=== PATIENT | female | born 1995 | race Caucasian/White ===

== ENCOUNTER 2016-03-20 09:23 | Emergency (ER) | payer OTHER, MEDICAID ==
[2016-03-20 11:04] LABS: Urine Bacteria Absent (Absent); Urine Bilirubin Negative (Negative); Urine Glucose Negative (Negative); Urine Nitrite Negative (Negative)
--- NOTE | 2016-03-20 11:15 | ED ---
GI/ HPI - HPI Summary HPI Summary: 20yo female presents with dysuria, frequency and urgency for the last 3 days. She presents today with concerns over RLQ pain that radiates into her right flank that woke her from sleep at 0100 today. She denies fever. She does have chills. + vomiting but no nausea. She believes that the emesis was secondary to pain. Pain is described as a labor pain, cramping pain 7/10 constant pain. + lactating, 2 month post . Denies h/o kidney stones. Patient states that pain is constant and nothing makes it better or worse. Patient would like pain medication that is not contraindicated with . She denies any anorexia. Denies any vaginal symptoms of discharge or bleeding. - History of Current Complaint Chief Complaint: EDAbdPain Time Seen by Provider: 03/20/16 11:00 Stated Complaint: RT SIDE FLANK PAIN Pain Intensity: 7 - Allergy/Home Medications Allergies/Adverse Reactions: Allergies Allergy/AdvReac Type Severity Reaction Status Date / Time Iodine Allergy Rash Verified 03/20/16 09:29 PMH/Surg Hx/FS Hx/Imm Hx Previously Healthy: Yes - Immunization History Date of Tetanus Vaccine: 2011 Date of Influenza Vaccine: Fall 2014 Infectious Disease History: No Infectious Disease History: Denies: Traveled Outside the [place] in Last 30 Days - Family History Known Family History: Positive: Other - Mother CVA 48yo - Social History Alcohol Use: None Substance Use Type: Reports: None Smoking Status (MU): Never Smoked Tobacco Review of Systems Positive: Chills Positive: Vomiting Positive: burning, dysuria, frequency, flank pain, urgency All Other Systems Reviewed And Are Negative: Yes Physical Exam - Summary Physical Exam Summary: GENERAL: Well appearing, No acute distress, well nourished. Non toxic. HEENT: Head atraumatic/normocephalic, EOMI/LACEY, conjunctiva clear, TMs appear without erythema/bulging, Nose appears without congestion or drainage, Throat uvula midline without exudates, erythema, or tonsillar edema. NECK: Supple with normal range of motion during conversation. CARDIAC: RRR without murmur, rub or gallop LUNGS: Clear to auscultation without wheezing, rales or rhonchi. Normal respiratory effort. Breath sounds are symmetrical and equal. ABDOMEN: Abdomen is soft with some RLQ tenderness which is not over McBurney' s point. No rebound or guarding. Neg Heel jar. + right CVA tenderness. MUSCULOSKELETAL: Moves all extremities well. There is no peripheral edema. SKIN: Warm and dry, skin color reflects adequate perfusion. NEUROLOGICAL: Patient is alert and appropriate. Cranial nerves are grossly intact. PSYCHIATRIC: Appropriate affect. Vital Signs On Initial Exam: Initial Vitals Temp Pulse Resp BP Pulse Ox 97.0 F 98 16 105/65 99 03/20/16 09:26 03/20/16 09:26 03/20/16 09:26 03/20/16 09:26 03/20/16 09:26 - Peck Coma Scale Coma Scale Total: 15 Diagnostics - Vital Signs Vital Signs Temp Pulse Resp BP Pulse Ox 03/20/16 09:26 97.0 F 98 16 105/65 99 - Laboratory Lab Results: Lab Results 03/20/16 Range/Units 10:40 Urine Color Yellow Urine Appearance Cloudy Urine pH 5.0 (5-9) Ur Specific [place] 1.013 (1.010-1.030) Urine Protein 2+(100 mg/dl) H (Negative) Urine Ketones Negative (Negative) Urine Blood 1+ H (Negative) Urine Nitrate Negative (Negative) Urine Bilirubin Negative (Negative) Urine Urobilinogen Negative (Negative) Ur Leukocyte Esterase 3+ H (Negative) Urine WBC (Auto) 3+(>20/hpf) H (Absent) Urine RBC (Auto) 3+(>10/hpf) H (Absent) Ur Squamous Epith Cells Present H (Absent) Ur Transition Epith Cell Present H (Absent) Urine Bacteria Absent (Absent) Urine Glucose Negative (Negative) Urine Ascorbic Acid * H (Negative) Result Diagrams: 03/20/16 11:52 03/20/16 11:52 Lab Statement: Any lab studies that have been ordered have been reviewed, and results considered in the medical decision making process. - Ultrasound No standard instances Ultrasound Interpretation: No Acute Changes - No hydronephrosis of either kidney is noted. Bilateral ureteral jets to BE patent. Ultrasound Interpretation Completed By: Radiologist Re-Evaluation - Re-Evaluation First Eval Change: Unchanged - Patient would like medication for pain that is safe in . Discussed limitations of u/s vs ct for evaluation for kidney stone, however the benefit of limiting radiation to reproductive organs with u/s. Patient voiced understanding and consents to u/s exam. Second Eval Change: Improved - Patient states that the pain has improved to a 3/4 from a 7/ 8. She has been able to take and retain. She would like to be discharged. GIGU Course/Dx - Course Assessment/Plan: 20yo female presents with urinary symptoms for 3 days then started with RLQ and right flank pain that started last night. She had one emesis this am. + chills without fever. Denies vaginal symptoms. She is nursing. Exam is significant for CVA tenderness. No McBurney's point tenderness. She improved with fluids, toradol and abx. She is able to take and retain. U/s did not show signs of obstruction. Discussed that the u/s can be limited in respect to a non obstructing stone, but does not have the radiation exposure. Discussed with Dr. Gaspar. Medication was checked and was generally considered safe in . Patient is reliable and understands that she must return with any new or worsening symptoms. Patient voiced understanding and is comfortable with the plan of care. - Diagnoses Provider Diagnoses: Acute pyelonephritis - Physician Notifications Discussed Care Of Patient With: Dr. Gaspar Discharge - Discharge Plan Condition: Good Disposition: HOME Prescriptions: Sulfamethox/Trimethoprim DS* [Bactrim DS 800/160 TAB*] 1 tab PO BID #20 tab Patient Education Materials: Sulfamethoxazole/Trimethoprim (By mouth), Ibuprofen (By mouth), Acute Pyelonephritis (ED) Referrals: [facility] [Outside] - 2 Days Additional Instructions: Please follow up with your PCP tomorrow for a recheck. As discussed, it is important that you follow up here with any worsening pain, vomiting, unable to urinate, fever or chills. Please return with any problems, concerns or worsening symptoms. Often this will improve with antibiotics, sometimes the symptoms worsen and you need to be admitted for infection. Please have a low threshold to return with any problems/concerns. Addendum entered and electronically signed by Yudith Wright PA 03/22/16 07: 20: ED Addendum Addendum: Patient urine culture grew e coli 75-100,000. pt placed on bactrim at d/c will wait for final culture to see sensitivity.
[2016-03-20] MEDS ORDERED: cefTRIAXone(*) 1 GM in NS 0.9% 50 ML* 50 ML IVPB ONE (11:28)
[2016-03-20] MEDS ORDERED: Ketorolac INJ* 30 MG/ML 1 ML VIAL IV ONE (11:28)
[2016-03-20] MEDS: NS 0.9% 1000 ML* 2,000 ML IV ONE ×2 (11:54→12:39)
[2016-03-20 12:23] LABS: Hematocrit 38 % (35-47); Hemoglobin 12.7 g/dl (12.0-16.0); Mean Corpuscular HGB Conc 34 g/dl (31-36); Mean Corpuscular Hemoglobin 31 pg (27-31); Mean Corpuscular Volume 92 fL (80-97); Mean Platelet Volume 9 um3 (7.4-10.4); Red Blood Count 4.08 10^6/ul (4.0-5.4); Red Cell Distribution Width 13 % (10.5-15); White Blood Count 8.5 10^3/ul (3.5-10.8)
[2016-03-20 12:37] LABS: BUN/Creatinine Ratio 13.3 (8-20); Calcium 8.9 mg/dL (8.6-10.3); EGFR African American 124.3 (>60); EGFR Non-African American 96.6 (>60); Globulin 2.8 g/dL (2-4); Potassium 3.4 mmol/L (3.5-5.0); Total Bilirubin 0.4 mg/dL (0.2-1.0); Total Protein 6.8 g/dL (6.4-8.9)
--- NOTE | 2016-03-20 12:43 | RAD ---
Indication: Right costovertebral angle tenderness. Real-time sonography of the kidneys was performed. Right kidney measures 11.4 x 5.0 x 4.0 cm. No hydronephrosis is noted. Left kidney measures 11.6 x 4.7 x 4.8 cm. No hydronephrosis is noted. Evaluation of the ureteral jets in the urinary bladder demonstrates bilateral ureteral jets to BE patent. IMPRESSION: No hydronephrosis of either kidney is noted.
[2016-03-20 14:34] VITALS: BP 128/76
--- NOTE | 2016-03-23 09:05 | PN ---
Progress Note - Progress Note Note: Patient discharged on Bactrim, which is sensitive to cultures. No further action required.
== END 2016-03-20 14:31 | disposition home or self-care (01) ==
LOC: ED 09:23
DX: N10 Acute pyelonephritis (principal); R10.31 Right lower quadrant pain; R11.10 Vomiting, unspecified; R30.0 Dysuria
CPT/HCPCS: 36415; 76775; 80053; 81003; 81015; 83605; 84702; 85025; 87077; 87086; 87186; 96361; 96374; 99282; J0696; J1885

== ENCOUNTER 2016-10-01 20:05 | Emergency (ER) | payer OTHER, MEDICAID ==
[2016-10-01] MEDS ORDERED: Ondansetron INJ* 2 MG/ML VIAL IV ONE (22:53)
[2016-10-01] MEDS ORDERED: NS 0.9% 1000 ML* 1,000 ML IV ONE (22:53)
[2016-10-01 23:20] LABS: Hematocrit 41 % (35-47); Hemoglobin 13.7 g/dl (12.0-16.0); Mean Corpuscular HGB Conc 34 g/dl (31-36); Mean Corpuscular Hemoglobin 31 pg (27-31); Mean Corpuscular Volume 93 fL (80-97); Mean Platelet Volume 9 um3 (7.4-10.4); Red Blood Count 4.39 10^6/ul (4.0-5.4); Red Cell Distribution Width 13 % (10.5-15); White Blood Count 8.9 10^3/ul (3.5-10.8)
[2016-10-01 23:35] LABS: Anion Gap 11 mmol/L (2-11); Blood Urea Nitrogen 8 mg/dL (6-24); CO2 Carbon Dioxide 24 mmol/L (22-32); Calcium 9.1 mg/dL (8.6-10.3); Chloride 100 mmol/L (101-111); EGFR African American 127.1 (>60); EGFR Non-African American 98.8 (>60); Glucose 81 mg/dL (70-100); Potassium 3.4 mmol/L (3.5-5.0); Sodium 135 mmol/L (133-145)
--- NOTE | 2016-10-02 00:10 | ED ---
Ana Rosa Alexander Alfonso, scribed for Shawn Foster MD on 10/01/16 at 2256 . Complex/Multi-Sys Presentation - HPI Summary HPI Summary: This patient is a 21 year old F presenting to [facility] accompanied by male with a chief complaint of bilateral breast swelling since yesterday. Pt rates the pain 7/10 in severity. Symptoms aggravated and alleviated by nothing. Pt reports fever, nausea, vomiting, and bilateral breast pain. Pt was prescribed Bactrim after a PCP diagnosis of mastitis earlier today. Pt reports having taken the first dose. - History Of Current Complaint Chief Complaint: EDGeneral Time Seen by Provider: 10/01/16 22:50 Hx Obtained From: Patient Onset/Duration: Sudden Onset, Lasting Days - Yesterday, Still Present Timing: Constant Severity Currently: Moderate Severity Initially: Moderate Aggravating Factor(s): Nothing Alleviating Factor(s): Nothing Associated Signs And Symptoms: Positive: Other - Pt reports fever, nausea, vomiting, and bilateral breast pain. - Allergies/Home Medications Allergies/Adverse Reactions: Allergies Allergy/AdvReac Type Severity Reaction Status Date / Time Iodine Allergy Rash Verified 10/01/16 20:18 PMH/Surg Hx/FS Hx/Imm Hx Sensory History: Denies: Hx Deafness Opthamlomology History: Denies: Hx Legally Blind - Immunization History Date of Tetanus Vaccine: 2011 Date of Influenza Vaccine: Fall 2014 Infectious Disease History: Denies: Traveled Outside the [place] in Last 30 Days - Family History Known Family History: Positive: Other - Mother CVA 48yo - Social History Alcohol Use: None Substance Use Type: Reports: None Smoking Status (MU): Never Smoked Tobacco Review of Systems Positive: Fever Positive: Vomiting, Nausea Positive: Edema - bilateral breast swelling , Other - Positive bilateral breast pain All Other Systems Reviewed And Are Negative: Yes Physical Exam Triage Information Reviewed: Yes Vital Signs On Initial Exam: Initial Vitals Temp Pulse Resp BP Pulse Ox 99.9 F 106 16 111/62 98 10/01/16 20:10 10/01/16 20:10 10/01/16 20:10 10/01/16 20:10 10/01/16 20:10 Vital Signs Reviewed: Yes Appearance: Positive: Well-Appearing, No Pain Distress Skin: Positive: Warm Head/Face: Positive: Normal Head/Face Inspection Eyes: Positive: RUSSELL ENT: Positive: Hearing grossly normal Neck: Positive: Supple Respiratory/Lung Sounds: Positive: Clear to Auscultation, Breath Sounds Present , Other - lt breast mildly warm indurated, no fluctunce, no d/c Cardiovascular: Positive: RRR Abdomen Description: Positive: Nontender, Soft Musculoskeletal: Positive: Strength/ROM Intact Neurological: Positive: Alert, Oriented to Person Place, Time Psychiatric: Positive: Affect/Mood Appropriate Diagnostics - Vital Signs Vital Signs Temp Pulse Resp BP Pulse Ox 10/01/16 21:45 98.3 F 103 120/63 100 10/01/16 20:10 99.9 F 106 16 111/62 98 - Laboratory Lab Results: Lab Results 10/01/16 10/01/16 Range/Units 23:11 23:11 WBC 8.9 (3.5-10.8) 10^3/ul RBC 4.39 (4.0-5.4) 10^6/ul Hgb 13.7 (12.0-16.0) g/dl Hct 41 (35-47) % MCV 93 (80-97) fL MCH 31 (27-31) pg MCHC 34 (31-36) g/dl RDW 13 (10.5-15) % Plt Count 181 (150-450) 10^3/ul MPV 9 (7.4-10.4) um3 Neut % (Auto) 79.9 (38-83) % Lymph % (Auto) 10.2 L (25-47) % [place] % (Auto) 5.1 (1-9) % Eos % (Auto) 4.4 (0-6) % Baso % (Auto) 0.4 (0-2) % Absolute Neuts (auto) 7.1 (1.5-7.7) 10^3/ul Absolute Lymphs (auto) 0.9 L (1.0-4.8) 10^3/ul Absolute Monos (auto) 0.5 (0-0.8) 10^3/ul Absolute Eos (auto) 0.4 (0-0.6) 10^3/ul Absolute Basos (auto) 0 (0-0.2) 10^3/ul Absolute Nucleated RBC 0 10^3/ul Nucleated RBC % 0 Sodium 135 (133-145) mmol/L Potassium 3.4 L (3.5-5.0) mmol/L Chloride 100 L (101-111) mmol/L Carbon Dioxide 24 (22-32) mmol/L Anion Gap 11 (2-11) mmol/L BUN 8 (6-24) mg/dL Creatinine 0.73 (0.51-0.95) mg/dL Est GFR ( Amer) 127.1 (>60) Est GFR (Non-Af Amer) 98.8 (>60) BUN/Creatinine Ratio 11.0 (8-20) Glucose 81 (70-100) mg/dL Calcium 9.1 (8.6-10.3) mg/dL Result Diagrams: 10/01/16 23:11 10/01/16 23:11 Lab Statement: Any lab studies that have been ordered have been reviewed, and results considered in the medical decision making process. Complex Multi-Symp Course/Dx Assessment/Plan: 21 year old F presenting to [facility] accompanied by male with a chief complaint of bilateral breast swelling since yesterday. Pt reports fever, nausea, vomiting, and bilateral breast pain. Pt was prescribed Bactrim after a PCP diagnosis of mastitis earlier today. Pt reports having taken the first dose. Patient will be discharged with instructions to continue taking PCP prescription and follow up from PCP. Pt is agreeable with this plan. - Diagnoses Provider Diagnoses: Mastitis Discharge - Discharge Plan Condition: Stable Disposition: HOME Patient Education Materials: Mastitis (ED) Referrals: Radha Barkley MD [Primary Care Provider] - 2 Days Additional Instructions: CONTINUE PREVIOUSLY PRESCRIBED TREATMENT. RETURN TO ED IMMEDIATELY FOR ANY WORSENING SYMPTOMS. The documentation as recorded by the Ana Rosa alford Alfonso accurately reflects the service I personally performed and the decisions made by , Shawn Foster MD.
[2016-10-02 00:35] VITALS: BP 103/53
== END 2016-10-02 00:37 | disposition home or self-care (01) ==
LOC: ED 20:05
DX: N61.0 Mastitis without abscess (principal); R50.9 Fever, unspecified; R11.2 Nausea with vomiting, unspecified; R60.9 Edema, unspecified
CPT/HCPCS: 36415; 80048; 84702; 85025; 96374; 99282; J2405

== ENCOUNTER 2018-04-07 15:29 | Emergency (ER) | payer OTHER, MEDICAID ==
[2018-04-07 15:54] VITALS: BP 111/68
--- NOTE | 2018-04-07 16:20 | UC ---
Throat Pain/Nasal Dallin HPI - HPI Summary HPI Summary: 22-year-old woman 22-year-old woman comes in with a chief complaint of upper respiratory tract infection symptoms and left ear pain. Patient's been having upper respiratory tract infection symptoms on and off for several months. Over time she's been developing off colored rhinorrhea. She's also developed recently left ear pain and also a swollen lymph node in the left upper lateral neck. Patient's had a history of a swollen lymph node in that area of her neck and she had it biopsied when she was 15 years old and patient reports everything was normal at that time. That lymph node has always swollen the last week or so it's more swollen than usual and it's tender to palpation. No fevers no chest congestion. - History of Current Complaint Chief Complaint: UCRespiratory Stated Complaint: SORE THROAT Time Seen by Provider: 04/07/18 15:52 Hx Last Menstrual Period: 01/30/18 Pain Intensity: 6 - Allergies/Home Medications Allergies/Adverse Reactions: Allergies Allergy/AdvReac Type Severity Reaction Status Date / Time iodine Allergy Rash Verified 04/07/18 15:55 PMH/Surg Hx/FS Hx/Imm Hx Previously Healthy: Yes - ANTERIOR LYMPHADENOPATHY - Surgical History Surgical History: None - Family History Known Family History: Positive: Other - Mother CVA 48yo - Social History Alcohol Use: None Substance Use Type: None Smoking Status (MU): Never Smoked Tobacco - Immunization History Most Recent Influenza Vaccination: 12/02/15 Most Recent Tetanus Shot: 10/30/18 Most Recent Pneumonia Vaccination: not indicated Review of Systems All Other Systems Reviewed And Are Negative: Yes Constitutional: Positive: Negative Skin: Positive: Negative Eyes: Positive: Negative ENT: Positive: Sore Throat, Ear Ache, Nasal Discharge, Sinus Congestion, Sinus Pain/Tenderness Respiratory: Positive: Negative Cardiovascular: Positive: Negative Gastrointestinal: Positive: Negative Motor: Positive: Negative Neurovascular: Positive: Negative Musculoskeletal: Positive: Negative Neurological: Positive: Negative Psychological: Positive: Negative Is Patient Immunocompromised?: No Physical Exam Triage Information Reviewed: Yes Appearance: Well-Appearing, No Pain Distress, Well-Nourished Vital Signs: Initial Vital Signs Temp 99 F 04/07/18 15:49 Pulse 90 04/07/18 15:49 Resp 16 04/07/18 15:49 BP 111/68 04/07/18 15:49 Pulse Ox 99 04/07/18 15:49 Vital Signs Reviewed: Yes Eye Exam: Normal Eyes: Positive: Conjunctiva Clear ENT: Positive: Pharyngeal erythema, Nasal congestion, Nasal drainage, TM bulging - LEFT, TM dull - LEFT Neck: Positive: Supple, Enlarged Nodes @ - LEFT UPPER ANTERIOR, Other: Respiratory: Positive: Lungs clear, Normal breath sounds, No respiratory distress Cardiovascular: Positive: RRR Musculoskeletal Exam: Normal Musculoskeletal: Positive: Strength Intact, ROM Intact Neurological Exam: Normal Neurological: Positive: Alert, Muscle Tone Normal Psychological Exam: Normal Psychological: Positive: Age Appropriate Behavior Skin Exam: Normal Throat Pain/Nasal Course/Dx - Course Course Of Treatment: Patient's had upper respiratory tract infection symptoms on -and-off for several months and now has off colored rhinorrhea left serous otitis media and a swollen lymph node in the left anterior neck. We'll treat with Augmentin and symptomatic treatment. Because of the swollen lymph node today we will check CBC and CMP. Patient has a follow-up with her primary care doctor next week for reevaluation of the lymph node. We discussed if lymph node does not returned normal after she feels better she needs further evaluation of the lymph node. - Differential Dx/Diagnosis Provider Diagnosis: Lymphadenopathy, cervical, Sinusitis, Acute serous otitis media of left ear Discharge - Sign-Out/Discharge Documenting (check all that apply): Patient Departure All imaging exams completed and their final reports reviewed: No Studies - Discharge Plan Condition: Stable Disposition: HOME Prescriptions: Amoxicillin/Clavulanate TAB* [Augmentin TAB 875*] 875 mg PO BID #20 tab Patient Education Materials: Sinusitis (ED), Lymphadenopathy (ED), Serous Otitis Media (ED) Referrals: Ruth Nichole DO [Primary Care Provider] - Additional Instructions: FOLLOW UP WITH YOUR DOCTOR NEXT WEEK SCHEDULED. GET RECHECKED FOR ANY WORSENING OF YOUR CONDITION OR QUESTIONS OR CONCERNS. - Billing Disposition and Condition Condition: STABLE Disposition: Home
[2018-04-07 19:10] LABS: ABS Basophils 0 10^3/ul (0-0.2); ABS Eosinophils 0.3 10^3/ul (0-0.6); ABS Lymphocytes 2.1 10^3/ul (1.0-4.8); ABS Monocytes 0.4 10^3/ul (0-0.8); ABS Neutrophils 2.5 10^3/ul (1.5-7.7); ABS Nucleated RBC 0 10^3/ul; Eosinophil % 5.9 %; Hematocrit 38 % (35-47); Lymphocyte % 39.3 %; Mean Corpuscular HGB Conc 34 g/dl (31-36); Mean Corpuscular Hemoglobin 32 pg (27-31); Mean Corpuscular Volume 92 fL (80-97); Mean Platelet Volume 9.6 fL (7.4-10.4); Nucleated Red Blood Cells % 0; Platelet Count 225 10^3/ul (150-450); Red Blood Count 4.13 10^6/ul (4.00-5.40); Red Cell Distribution Width 13 % (10.5-15); White Blood Count 5.3 10^3/ul (3.5-10.8)
[2018-04-07 19:18] LABS: Albumin 4.5 g/dL (3.2-5.2); Calcium 9.3 mg/dL (8.6-10.3); Total Bilirubin 0.2 mg/dL (0.2-1.0)
[2018-04-07 19:24] LABS: Albumin/Globulin Ratio 1.9 (1-3); BUN/Creatinine Ratio 14.3 (8-20); EGFR African American 124.4 (>60); EGFR Non-African American 102.8 (>60); Globulin 2.4 g/dL (2-4); Total Protein 6.9 g/dL (6.4-8.9)
== END 2018-04-07 16:50 | disposition home or self-care (01) ==
LOC: UCEAST 15:29
DX: R59.0 Localized enlarged lymph nodes (principal); J32.9 Chronic sinusitis, unspecified; H65.02 Acute serous otitis media, left ear; J02.9 Acute pharyngitis, unspecified; Z91.09 Other allergy status, other than to drugs and biological substances
CPT/HCPCS: 36415; 80053; 85025; 99212; G0463

== ENCOUNTER 2018-06-28 20:00 | Emergency (ER) | payer MEDICAID, OTHER ==
[2018-06-28 20:07] VITALS: BP 126/76
[2018-06-28] MEDS ORDERED: Cephalexin CAP* 500 MG PO ONE ×2 (21:11)
--- NOTE | 2018-06-28 21:20 | UC ---
- HPI Summary HPI Summary: LEFT BREAST REDNESS, FIRMNESS AND PAIN STARTED ABOUT 2 DAYS AGO. PATIENT IS BREAST-FEEDING HER 2-1/2-YEAR-OLD AND HAS BEEN TRYING TO WEAN HER. HAS HAD MASTITIS IN THE PAST ABOUT 6 MONTHS AGO. HAS CHILLS BUT NO DOCUMENTED FEVER. HAS OVERALL MALAISE. - History of Current Complaint Hx Obtained From: Patient Breast Chief Complaint: Pain, Breast, Left Onset/Duration: Started Days Ago - 2 DAYS, Still Present Timing: Constant Breast Pain Radiates To: Left Breast Pain Aggravating Factors: Palpation Breast Pain Alleviating Factors: Nothing Breast Associated Signs/Symptoms: Nodule/Mass, Redness, Warmth - Allergy/Home Medications Allergies/Adverse Reactions: Allergies Allergy/AdvReac Type Severity Reaction Status Date / Time iodine Allergy Rash Verified 06/28/18 20:07 Home Medications: Home Medications Escitalopram * [Lexapro 5 mg (NF)] 5 mg PO DAILY 06/28/18 [History Confirmed ] PMH/Surg Hx/FS Hx/Imm Hx Previously Healthy: Yes - Surgical History Surgical History: None - Family History Known Family History: Positive: Other - Mother CVA 48yo - Social History Alcohol Use: None Substance Use Type: None Smoking Status (MU): Never Smoked Tobacco - Immunization History Most Recent Influenza Vaccination: 12/02/15 Most Recent Tetanus Shot: 10/30/18 Most Recent Pneumonia Vaccination: not indicated Review of Systems All Other Systems Reviewed And Are Negative: Yes Constitutional: Positive: Chills Skin: Positive: Other - REDNESS LEFT BREAST Respiratory: Positive: Negative Cardiovascular: Positive: Negative Gastrointestinal: Positive: Negative Physical Exam Triage Information Reviewed: Yes Appearance: Well-Appearing, No Pain Distress, Well-Nourished Vital Signs: Initial Vital Signs Temp 97.2 F 06/28/18 20:04 Pulse 89 06/28/18 20:04 Resp 18 06/28/18 20:04 BP 126/76 06/28/18 20:04 Pulse Ox 100 06/28/18 20:04 Vital Signs Reviewed: Yes Eyes: Positive: Conjunctiva Clear ENT: Positive: Hearing grossly normal Neck: Positive: Supple Respiratory: Positive: No respiratory distress, No accessory muscle use Cardiovascular: Positive: Pulses Normal Abdomen Description: Positive: Soft Musculoskeletal: Positive: No Edema Neurological: Positive: Alert Psychological: Positive: Age Appropriate Behavior Skin: Negative: Breakdown UC Physical Exam Vital Signs On Initial Exam: Initial Vitals Temp Pulse Resp BP Pulse Ox 97.2 F 89 18 126/76 100 06/28/18 20:04 06/28/18 20:04 06/28/18 20:04 06/28/18 20:04 06/28/18 20:04 - Breast Exam Breast Condition: Soft, Areas of Hardness - TENDER LEFT LOWER, OUTER QUADRANT FIRMNESS WITH OVERLYING ERYTHEMA Breast Pain Course/Dx - Diagnoses Provider Diagnoses: Acute mastitis of left breast Discharge - Sign-Out/Discharge Documenting (check all that apply): Patient Departure All imaging exams completed and their final reports reviewed: No Studies - Discharge Plan Condition: Stable Disposition: HOME Prescriptions: Cephalexin CAP* [Keflex 500 CAP*] 1,000 mg PO BID #36 cap Patient Education Materials: Mastitis (ED) Referrals: Ruth Nichole DO [Primary Care Provider] - If Needed Additional Instructions: TAKE THE ANTIBIOTIC PRESCRIBED. HEAT AND MASSAGE MAY HELP. USE IBUPROFEN FOR DISCOMFORT. THIS IS SAFE DURING . STICK TO A WEANING SCHEDULE SO YOUR MILK SUPPLY GRADUALLY DECREASES TO HELP PREVENT RECURRENT MASTITIS. - Billing Disposition and Condition Condition: STABLE Disposition: Home
== END 2018-06-28 21:35 | disposition home or self-care (01) ==
LOC: UCEAST 20:00
DX: N61.0 Mastitis without abscess (principal); Z91.041 Radiographic dye allergy status
CPT/HCPCS: 99212; A9270-GY; G0463

== ENCOUNTER 2019-03-04 07:09 | Emergency (ER) | payer OTHER, MEDICAID ==
--- NOTE | 2019-03-04 07:16 | UC ---
Throat Pain/Nasal Dallin HPI - HPI Summary HPI Summary: Patient's a 23-year-old female presents to urgent care with a sore for throat progressive the last 2-3 days. Patient states she has some painful swallowing. No drooling. Patient states last night she felt warm took some ibuprofen. Patient states she chronically has left ear pain and this has not changed. No sinus congestion. No rash. No chest pain, shortness of breath, cough, nausea, vomiting, or diarrhea. Patient works at [employer] but does not know of any positive strep exposures. Patient's daughter was recently diagnosed with influenza. Patient states she is not . Patient's medications as ordered in the EMR by triage is reviewed. - History of Current Complaint Stated Complaint: SORE THROAT Hx Obtained From: Patient Hx Last Menstrual Period: 01/30/18 - Allergies/Home Medications Allergies/Adverse Reactions: Allergies Allergy/AdvReac Type Severity Reaction Status Date / Time iodine Allergy Severe Rash Verified 03/04/19 07:21 sulfamethoxazole Allergy Mild Rash Verified 03/04/19 07:21 [From Bactrim] trimethoprim [From Bactrim] Allergy Mild Rash Verified 03/04/19 07:21 Home Medications: Home Medications Ibuprofen [Motrin Ib] 600 mg PO ONCE PRN 03/04/19 [History Confirmed 03/04/19] Levonorgestrel (Iud) [Mirena IUD] 1 unit INTRAUTERI ONCE 03/04/19 [History Confirmed 03/04/19] PMH/Surg Hx/FS Hx/Imm Hx Previously Healthy: Yes - Surgical History Surgical History: None - Family History Known Family History: Positive: Other - Mother CVA 48yo, Non-Contributory - Social History Occupation: Employed Full-time - [employer] as an aide Lives: With Family Alcohol Use: None Substance Use Type: None Smoking Status (MU): Never Smoked Tobacco - Immunization History Most Recent Influenza Vaccination: 12/02/15 Most Recent Tetanus Shot: 10/30/18 Most Recent Pneumonia Vaccination: not indicated Review of Systems All Other Systems Reviewed And Are Negative: Yes Constitutional: Positive: Fever - Tactile Skin: Positive: Negative Eyes: Positive: Negative ENT: Positive: Sore Throat, Ear Ache Respiratory: Positive: Negative Cardiovascular: Positive: Negative Physical Exam - Summary Physical Exam Summary: Vital Signs Reviewed: Yes A+Ox3, no distress Eyes: Conjunctiva Clear, RUSSELL. EOM intact and full ENT: Hearing grossly normal TM x 2 clear, no mastoid pain, turbinates mild inflammed, mmoist, uvula midline, + mild exudate L>R, + erythema Neck: Positive: Supple, + submandibular LA Respiratory: Positive: No respiratory distress, No accessory muscle use + CTA throughout no w/r Cardiovascular: RRR nl s1, s2 no m/r CBT <2 sec abd soft + BS nt/nd no guarding, no distension Musculoskeletal Exam: IBARRA x 4 without difficulty Strength Intact, ROM Intact Neurological: Positive: Alert, + sensation throughout Psychological: Positive: Normal Response To examiner Skin: Positive: no rash, no ecchymosis Triage Information Reviewed: Yes Throat Pain/Nasal Course/Dx - Course Course Of Treatment: Patient presents to urgent care for evaluation of sore throat progressive for 2- 3 days. Patient is painful swallowing and tactile fever last night. On exam vital signs are stable. Patient does have mild sinus congestion. Patient does have erythema with exudate or tonsil rate were somewhat. Patient also was submandibular lymphadenopathy. Patient speaking easy. Mrs. with no drooling. Patient strep throat was positive. Discussed with patient at length with her amoxicillin. Secretion precaution. Motrin/Tylenol. Gargle warm salt water. Patient was given a prescription for Diflucan as needed for vaginal yeast infection was identified. Return precautions discussed. Patient comfortable and in agreement with plan. - Differential Dx/Diagnosis Provider Diagnosis: Strep throat Discharge ED - Sign-Out/Discharge Documenting (check all that apply): Patient Departure All imaging exams completed and their final reports reviewed: No Studies - Discharge Plan Condition: Stable Disposition: HOME Prescriptions: Amoxicillin PO (*) [Amoxicillin 500 MG CAP*] 500 mg PO Q12H #20 cap Fluconazole [Diflucan 150 MG (NF)] 150 mg PO ONCE PRN #1 tab PRN Reason: vaginal yeast infection Patient Education Materials: Strep Throat (ED) Referrals: Ruth Nichole DO [Primary Care Provider] - Additional Instructions: - Okay to alternate ibuprofen (Advil, Motrin) and Tylenol every 3 hours for pain. Take with food. Do NOT take for more than 4-5 days - Okay to gargle and spit warm salt water every 4 hours as needed for pain - Stay well hydrated - frequent sips of cold fluids will be soothing to your throat (popsicles, jello, ice cream, ice water). Avoid excess caffeine until your symptoms have resolved. -Throat infections are spread by oral secretions - do not share eating or drinking utensils until you symptoms are resolved. Clean items that may get your secretions such as cell phones, ipads, computer mouse, television remotes. Once you have been on antibiotics for 2 days, change your toothbrush and your pillowcase. - humidify the air in the room where you sleep - boil water, run a hot steam shower, vaporizer, cups of water by heat register -you have been given a prescription for diflucan. Okay to take if you develop a yeast infection from the antibiotics - Contact your doctor to arrange a follow-up appointment as needed - Billing Disposition and Condition Condition: STABLE Disposition: Home
[2019-03-04 07:21] VITALS: BP 128/66
== END 2019-03-04 07:40 | disposition home or self-care (01) ==
LOC: UCEAST 07:09
DX: J02.0 Streptococcal pharyngitis (principal); H92.02 Otalgia, left ear; R09.81 Nasal congestion; Z91.09 Other allergy status, other than to drugs and biological substances; Z88.2 Allergy status to sulfonamides
CPT/HCPCS: 87651; 99212; G0463

== ENCOUNTER 2021-04-21 14:27 | Inpatient (IN) ==
[2021-04-21] MEDS ORDERED: Lactated Ringers 1000 ml BAG 1,000 ML IV ONE (14:51)
[2021-04-21] MEDS ORDERED: Buffered Lidocaine 1% SYRIN 1 ml INTRADERM ONE (14:51)
[2021-04-21] MEDS ORDERED: Lactated Ringers 1000 ml BAG 1,000 ML IV SCH (15:00)
[2021-04-21] MEDS ORDERED: Dibucaine 1% OINT 28.35 GM TUBE PR PRN (16:29)
[2021-04-21] MEDS ORDERED: Glycerin ADULT 2.4 gm SUPP PR PRN (16:29)
[2021-04-21] MEDS ORDERED: Witch Hazel PAD JAR TOPICAL PRN (16:29)
[2021-04-21 20:47] LABS: Urine Appearance Clear; Urine Bilirubin Negative (Negative); Urine Blood 3+ (Negative); Urine Color Yellow; Urine Glucose Negative (Negative); Urine Ketones Trace (Negative); Urine Nitrite Negative (Negative); Urine Protein Negative (Negative); Urine Specific Gravity 1.004 (1.002-1.030); Urine Urobilinogen Negative (Negative)
[2021-04-21 20:49] LABS: Urine Bacteria 1+ (Absent); Urine Red Blood Cell 3+(>10/hpf) (Absent); Urine Squamous Epithelial Cell Present (Absent); Urine White Blood Cell 1+(6-10/hpf) (Absent)
[2021-04-21 21:02] LABS: Urine Benzodiazepine Screen None Detected (None Detect); Urine Cannabinoids Screen None Detected (None Detect); Urine Opiates Screen None Detected (None Detect)
[2021-04-22 06:14] LABS: ABS Basophils 0.1 10^3/ul (0-0.2); ABS Lymphocytes 1.8 10^3/ul (1.0-4.8); ABS Monocytes 0.7 10^3/ul (0-0.8); ABS Neutrophils 7.6 10^3/ul (1.5-7.7); Eosinophil % 0.5 %; Hematocrit 29 % (35-47); Lymphocyte % 17.3 %; Mean Corpuscular HGB Conc 34 g/dL (31-36); Mean Corpuscular Hemoglobin 31 pg (27-31); Mean Corpuscular Volume 92 fL (80-97); Mean Platelet Volume 9.8 fL (7.4-10.4); Nucleated Red Blood Cells % 0.1; Platelet Count 191 10^3/uL (150-450); Red Blood Count 3.21 10^6 /uL (3.70-4.87); Red Cell Distribution Width 14 % (10-15); White Blood Count 10.2 10^3/uL (3.5-10.8)
[2021-04-22 16:16] VITALS: BP 128/70
== END 2021-04-22 17:03 | disposition home or self-care (01) | DRG 560 ==
LOC: MCHOBOUT 14:27 → MCHOB 14:55
PROVIDERS: ADMIT Midwife; ATTEND Midwife